=== PATIENT | female | born 1975 | race Caucasian/White ===

== ENCOUNTER → 2018-06-13 15:53 | Outpatient (REF) | payer BC, SELFPAY ==
[2018-06-13 22:07] LABS: TSH (W/Ref FT4) 2.49 uIU/mL (0.358-3.74)
== END ==
LOC: NCHCN 15:53
PROVIDERS: PCP Internal Medicine; Visit Provider Nurse Practitioner Family
DX: G47.62 Sleep related leg cramps; E03.9 Hypothyroidism, unspecified
CPT/HCPCS: 84443

== ENCOUNTER 2019-09-15 11:35 | Outpatient (REF) | payer OTHER, SELFPAY ==
[2019-09-15 22:54] LABS: ALT 37 U/L (14-59); AST 13 U/L (15-37); Albumin 4.2 g/dL (3.4-5.0); Alkaline Phosphatase 49 U/L (46-116); Anion Gap 8.5 mmol/L (3-11); BUN 18 mg/dL (7-18); Bilirubin, Total 0.5 mg/dL (0.2-1.0); CO2 27.5 mmol/L (21.0-32.0); CREATININE 0.73 mg/dL (0.55-1.02); Calculated LDL 139 mg/dL; Chloride 104 mmol/L (98-107); Cholesterol 220 mg/dL (<200); Glucose 86 mg/dL (74-106); HDL Cholesterol 68 mg/dL (40-60); Magnesium 1.9 mg/dL (1.8-2.4); Sodium 140 mmol/L (136-145); TSH 2.29 uIU/mL (0.36-3.74); Triglyceride 65 mg/dL (<150); Vitamin B12 1175 pg/mL (193-986)
[2019-09-15 23:12] LABS: FREE T4 0.69 ng/dL (0.76-1.46)
[2019-09-16 16:49] LABS: T3,Free 3.6 pg/mL (2.8-5.3)
== END 2019-09-15 11:55 ==
LOC: NCHCN 11:35
PROVIDERS: PCP Internal Medicine; Visit Provider Nurse Practitioner Family
DX: Z00.00 Encounter for general adult medical examination without abnormal findings (principal); R41.3 Other amnesia; I73.00 Raynaud's syndrome without gangrene; G47.62 Sleep related leg cramps; R61 Generalized hyperhidrosis; R19.7 Diarrhea, unspecified; M26.603 Bilateral temporomandibular joint disorder, unspecified; R10.30 Lower abdominal pain, unspecified
CPT/HCPCS: 80053; 80061; 82607; 83735; 84439; 84443; 84481

== ENCOUNTER 2019-10-01 10:04 | Outpatient (REF) | payer OTHER, SELFPAY ==
--- NOTE | 2019-10-01 09:30 | PAPFT_PTH ---
PATIENT: Cherise Javier LOC: [facility]#:[id number] AGE/SX: 43/F ROOM: RE10/01/[address]: Teagan Kelley : 1975 BED: DIS: 10/01/2019 SPEC #: [id number] RECD: 10/01/19 13:14 STATUS: JOYCE REBhupendra #: [id number] JONO: 10/01/19 09:[address]: Teagan Kelley DEPT: [facility] Cytology RECD BY: Roxy Lees Tissues: 1 - CX/ENDOCX FOR PAP SMEARS Procedures: PAP THIN PREP/[facility]VM Screening HPV DNA PROBE Comments: [id number] (CHLAMYDIA/GC)
[2019-10-01 21:54] LABS: Abs Immature Grans 0.01 k/cumm (0.0-0.09); Absolute Basophil Count 0.05 k/cumm (0.0-0.2); Absolute Eosinophil Count 0.15 k/cumm (0.0-0.7); Absolute Monocyte Count 0.35 k/cumm (0.11-0.7); Absolute Neutrophil Count 5.07 k/cumm (1.2-6.7); Basophils % 0.6; Eosinophils % 1.8; HCT 43.4 % (36.0-46.0); HGB 14.1 g/dL (12.0-15.5); Immature Grans % 0.1; Lymphocytes % 30.8; Mean Corp. HGB Concentration 32.5 g/dL (32.0-36.0); Mean Corpuscular Hemoglobin 32.3 pg (27.0-33.0); Mean Corpuscular Volume 99.3 fL (80-95); Mean Platelet Volume 12.2 fL (8.0-11.0); Monocytes % 4.3; Neutrophils % 62.4; Platelet Count 216 x1000/uL (130-400); RBC 4.37 m/cumm (4.00-5.20); RBC Distribution Width 12.6 % (11.7-14.6); White Blood Cell Count 8.13 k/cumm (4.4-10.8)
[2019-10-02 14:18] LABS: Chlamydia Result Negative (Negative); GC Result Negative (Negative)
[2019-10-03 11:45] LABS: Beta-HCG, Quant, Tumor Marker <0.6 IU/L
[2019-10-05 10:54] LABS: FSH 9.8 mIU/mL (See Note); Prolactin 9.4 ng/mL (See Table)
[2019-10-05 12:02] LABS: Syphilis Serology (RPR) Negative (Negative)
[2019-10-05 12:53] LABS: HIV-1/2 Ag & Ab Screen Negative (Negative)
[2019-10-05 15:23] LABS: Estradiol 158 pg/mL (See Note)
== END 2019-10-01 10:24 ==
LOC: NCHCN 10:04
PROVIDERS: PCP Nurse Practitioner Family; Visit Provider Nurse Practitioner Family
DX: N93.9 Abnormal uterine and vaginal bleeding, unspecified (principal); R10.30 Lower abdominal pain, unspecified; Z12.4 Encounter for screening for malignant neoplasm of cervix; Z01.419 Encounter for gynecological examination (general) (routine) without abnormal findings; Z11.4 Encounter for screening for human immunodeficiency virus [HIV]; Z11.3 Encounter for screening for infections with a predominantly sexual mode of transmission
CPT/HCPCS: 87389; 87491; 87591; 88142; 82670; 83001; 83002; 84146; 84702; 85025; 86592; 87480; 87510; 87624; 87660

== ENCOUNTER 2019-10-05 00:54 | Outpatient (CLI) | payer OTHER, SELFPAY ==
--- NOTE | 2019-10-05 13:07 | DI.US_ITS ---
EXAM: US PELVIS AND TRANSVAGINAL CLINICAL HISTORY: ABNORMAL VAGINAL BLEEDING N93.9, SUPRAPUBIC PAIN R10.30 TECHNIQUE: Ultrasound performed using standard protocol. COMPARISON: No exams were available for comparison FINDINGS: The uterus measures 7.8 centimeters long by 3.1 centimeters AP x 4.9 centimeters transverse. Myometr ium is unremarkable. The endometrial stripe is within normal limits at 8.4 millimeters. There is a small amount of fluid seen within the cervical portion of the canal. The right ovary measures 3.5 x 2.8 x 3.2 centimeters. There are follicular cysts present. There is normal blood flow to the right ovary. No evidence of torsion. The left ovary measures 3 x 1.7 x 1.7 centimeters. There are follicular cysts present. There is an involutional cyst present on the left ovary. There is normal blood flow to the left ovary. No evide nce of torsion. No free pelvic fluid or hydronephrosis. IMPRESSION: 1. Small amount of fluid seen within the endometrial canal. 2. Otherwise unremarkable pelvic ultrasound.
== END 2019-10-05 01:14 ==
PROVIDERS: PCP Nurse Practitioner Family; Visit Provider Nurse Practitioner Family
DX: N93.9 Abnormal uterine and vaginal bleeding, unspecified (principal); R10.30 Lower abdominal pain, unspecified; N83.292 Other ovarian cyst, left side
CPT/HCPCS: 76830; 76856

== ENCOUNTER 2020-07-13 12:22 | Outpatient (REF) | payer OTHER, SELFPAY ==
[2020-07-13 22:14] LABS: Abs Immature Grans 0.02 10^3/uL (0.0-0.06); Absolute Basophil Count 0.05 10^3/uL (0.0-0.2); Absolute Eosinophil Count 0.13 10^3/uL (0.0-0.7); Absolute Lymphocyte Count 2.89 10^3/uL (1.2-3.4); Absolute Monocyte Count 0.46 10^3/uL (0.1-0.8); Absolute Neutrophil Count 5.87 10^3/uL (1.2-6.7); Basophils % 0.5; Eosinophils % 1.4; HCT 40.5 % (36.0-46.0); HGB 13.3 g/dL (11.2-15.7); Immature Grans % 0.2; Lymphocytes % 30.7; MCH 33.3 pg (27.0-33.0); MCHC 32.8 % (32.0-36.0); MCV 101.3 fL (80-95); MPV 12.3 fL (8.0-11.0); Monocytes % 4.9; Neutrophils % 62.3; Nucleated RBC 0 %; Platelet Count 200 10^3/uL (130-400); RDW 12.3 % (11.7-14.6); RDW-SD 46.6 fL; WBC 9.42 10^3/uL (4.4-10.8)
== END 2020-07-13 12:42 ==
LOC: NCHCN 12:22
PROVIDERS: PCP Nurse Practitioner Family; Visit Provider Internal Medicine
DX: Z87.440 Personal history of urinary (tract) infections (principal)
CPT/HCPCS: 85025

== ENCOUNTER 2020-10-24 19:18 | Outpatient (REF) | payer OTHER, SELFPAY ==
[2020-10-24 22:03] LABS: Anion Gap 4.6 mmol/L (3-11); BUN 15 mg/dL (7-18); CO2 29.4 mmol/L (21.0-32.0); CREATININE 0.85 mg/dL (0.55-1.02); Calcium 9.3 mg/dL (8.5-10.1); Chloride 104 mmol/L (98-107); FREE T4 0.94 ng/dL (0.76-1.46); Glucose 90 mg/dL (74-106); Magnesium 2.1 mg/dL (1.8-2.4); Potassium 4.4 mmol/L (3.5-5.1); Sodium 138 mmol/L (136-145); TSH 1.18 uIU/mL (0.36-3.74)
[2020-10-24 22:12] LABS: Iron 72 ug/dL (50-170); Total Iron Binding Capacity 273 ug/dL (250-450); Transferrin Sat 26 % (15-50)
[2020-10-24 22:26] LABS: ESR 4 mm/hr (0-20)
[2020-10-25 08:52] LABS: Abs Immature Grans 0.04 10^3/uL (0.0-0.06); Absolute Eosinophil Count 0.09 10^3/uL (0.0-0.7); Absolute Lymphocyte Count 3.25 10^3/uL (1.2-3.4); Absolute Monocyte Count 0.59 10^3/uL (0.1-0.8); Absolute Neutrophil Count 8.54 10^3/uL (1.2-6.7); Basophils % 0.6; Eosinophils % 0.7; HCT 42.1 % (36.0-46.0); HGB 14.5 g/dL (11.2-15.7); Immature Grans % 0.3; Lymphocytes % 25.8; MCH 32.7 pg (27.0-33.0); MCHC 34.4 % (32.0-36.0); MPV 12.8 fL (8.0-11.0); Monocytes % 4.7; Neutrophils % 67.9; Nucleated RBC 0 %; Platelet Count 225 10^3/uL (130-400); RBC 4.43 10^6/uL (3.93-5.22); RDW 12.3 % (11.7-14.6); RDW-SD 42.9 fL; WBC 12.58 10^3/uL (4.4-10.8)
[2020-10-25 08:56] LABS: Absolute Basophil Count 0.08 10^3/uL (0.0-0.2)
[2020-10-25 16:46] LABS: T3,Free 4.9 pg/mL (2.8-5.3)
== END 2020-10-24 19:38 ==
LOC: NCHCN 19:18
PROVIDERS: PCP Nurse Practitioner Family; Visit Provider Nurse Practitioner Family
DX: R63.4 Abnormal weight loss (principal); N89.8 Other specified noninflammatory disorders of vagina; Z30.9 Encounter for contraceptive management, unspecified; K64.9 Unspecified hemorrhoids; G47.62 Sleep related leg cramps; E03.9 Hypothyroidism, unspecified; Z83.3 Family history of diabetes mellitus
CPT/HCPCS: 80048; 85652; 83036; 83540; 83550; 83735; 84439; 84443; 84481; 85025

== ENCOUNTER 2020-11-10 12:59 | Outpatient (REF) | payer OTHER, SELFPAY ==
[2020-11-10 13:02] LABS: Abs Immature Grans 0.03 10^3/uL (0.0-0.06); Absolute Basophil Count 0.07 10^3/uL (0.0-0.2); Absolute Eosinophil Count 0.11 10^3/uL (0.0-0.7); Absolute Lymphocyte Count 2.19 10^3/uL (1.2-3.4); Absolute Monocyte Count 0.46 10^3/uL (0.1-0.8); Absolute Neutrophil Count 7.24 10^3/uL (1.2-6.7); Basophils % 0.7; Eosinophils % 1.1; HCT 40.9 % (36.0-46.0); HGB 13.7 g/dL (11.2-15.7); Immature Grans % 0.3; Lymphocytes % 21.7; MCH 32.9 pg (27.0-33.0); MCHC 33.5 % (32.0-36.0); MCV 98.3 fL (80-95); MPV 12.3 fL (8.0-11.0); Monocytes % 4.6; Neutrophils % 71.6; Nucleated RBC 0 %; Platelet Count 205 10^3/uL (130-400); RBC 4.16 10^6/uL (3.93-5.22); RDW 12.5 % (11.7-14.6)
== END 2020-11-10 13:19 ==
LOC: NCHCN 12:59
PROVIDERS: PCP Nurse Practitioner Family; Visit Provider Nurse Practitioner Family
DX: D72.829 Elevated white blood cell count, unspecified (principal)
CPT/HCPCS: 85025

== ENCOUNTER 2021-04-06 16:45 | Outpatient (REF) | payer OTHER, SELFPAY ==
[2021-04-06 13:51] LABS: Abs Immature Grans 0.05 10^3/uL (0.0-0.06); Absolute Basophil Count 0.05 10^3/uL (0.0-0.2); Absolute Eosinophil Count 0.15 10^3/uL (0.0-0.7); Absolute Lymphocyte Count 2.69 10^3/uL (1.2-3.4); Absolute Monocyte Count 0.48 10^3/uL (0.1-0.8); Absolute Neutrophil Count 6.69 10^3/uL (1.2-6.7); Basophils % 0.5; Eosinophils % 1.5; HCT 41.9 % (36.0-46.0); HGB 13.9 g/dL (11.2-15.7); Immature Grans % 0.5; Lymphocytes % 26.6; MCH 33.2 pg (27.0-33.0); MCHC 33.2 % (32.0-36.0); MPV 12.7 fL (8.0-11.0); Monocytes % 4.7; Neutrophils % 66.2; Nucleated RBC 0 %; Platelet Count 199 10^3/uL (130-400); RBC 4.19 10^6/uL (3.93-5.22); RDW-SD 44.2 fL; WBC 10.11 10^3/uL (4.4-10.8)
[2021-04-06 13:52] LABS: ESR 1 mm/hr (0-20)
[2021-04-06 14:04] LABS: C-Reactive Protein 0.07 mg/dL (0.0-0.3)
[2021-04-07 14:08] LABS: Lyme Ab w Rflx to Lyme Confirm Negative (Negative)
[2021-04-07 15:04] LABS: ANA Interpretation Negative (Negative)
[2021-04-10 21:52] LABS: Anaplasma phagocytophilum Negative (Negative); B. miyamotoi PCR Negative (Negative); Babesia divergens/MO-1 Negative (Negative); Babesia duncani Negative (Negative); Babesia microti Negative (Negative); Ehrlichia chaffeensis Negative (Negative); Ehrlichia ewingii/canis Negative (Negative); Ehrlichia muris eauclairensis Negative (Negative)
== END 2021-04-06 16:46 | disposition home or self-care (01) ==
LOC: NCHCN 16:45
PROVIDERS: PCP Nurse Practitioner Family; Visit Provider Nurse Practitioner Family
DX: R53.83 Other fatigue (principal); D72.829 Elevated white blood cell count, unspecified; R20.2 Paresthesia of skin; M25.59 Pain in other specified joint; R10.9 Unspecified abdominal pain; I73.00 Raynaud's syndrome without gangrene; G43.909 Migraine, unspecified, not intractable, without status migrainosus; M25.551 Pain in right hip; M25.552 Pain in left hip
CPT/HCPCS: 85652; 87798; 85025; 86038; 86140; 86618

== ENCOUNTER 2021-04-11 01:36 | Outpatient (CLI) | payer OTHER, SELFPAY ==
--- NOTE | 2021-04-11 08:08 | DI.RAD_ITS ---
Exam(s) XR HIP PELVIS ADULT BL EXAM: XR HIP PELVIS ADULT BL CLINICAL HISTORY: LEANN HIP PAIN, M25.551, ARTHRALGIA, M25.50 TECHNIQUE: COMPARISON: No exams were available for comparison FINDINGS: Three views were obtained. Cartilaginous joint spaces of hips are well maintained. No bony or soft tissue abnormality seen. IMPRESSION: RADIATION DOSE DELIVERED: Total DLP
== END 2021-04-11 01:56 ==
PROVIDERS: PCP Nurse Practitioner Family; Visit Provider Nurse Practitioner Family
DX: M25.551 Pain in right hip (principal); M25.552 Pain in left hip
CPT/HCPCS: 73521

== ENCOUNTER 2021-10-12 17:17 | Outpatient (REF) | payer MEDICAID, SELFPAY | END 2021-10-12 17:18 | disposition home or self-care (01) | LOC: LBN 17:17 | PROVIDERS: PCP Nurse Practitioner Family; Visit Provider Physician Assistant Medical | DX: R10.9 Unspecified abdominal pain (principal) | CPT/HCPCS: 87077; 87086; 87186 ==

== ENCOUNTER 2021-11-08 09:12 | Outpatient (CLI) | payer MEDICAID, SELFPAY ==
--- NOTE | 2021-11-08 09:00 | DI.RAD_ITS ---
Exam(s) XR WRIST RT COMPLETE EXAM: XR WRIST RT COMPLETE CLINICAL HISTORY: right wrist pain. TECHNIQUE: 2D digital imaging was performed. COMPARISON: No exams were available for comparison FINDINGS: No evidence of acute fracture or carpal dislocation. No significant ulnar variance. Bone density no rmal. No osseous lesions nor erosions IMPRESSION: No significant radiographic findings. DATA REPOSITORY: RADIATION DOSE DELIVERED:
== END 2021-11-08 09:13 | disposition home or self-care (01) ==
LOC: DIORS 09:12
PROVIDERS: PCP Nurse Practitioner Family; Referring Provider Nurse Practitioner Family; Visit Provider Physician Assistant
DX: M25.531 Pain in right wrist (principal)
CPT/HCPCS: 73110

== ENCOUNTER 2022-12-04 10:38 | Outpatient (REF) | payer MEDICAID, SELFPAY ==
[2022-12-04 14:34] LABS: Abs Immature Grans 0.03 10^3/uL (0.0-0.06); Absolute Basophil Count 0.06 10^3/uL (0.0-0.2); Absolute Eosinophil Count 0.16 10^3/uL (0.0-0.7); Absolute Lymphocyte Count 2.26 10^3/uL (1.2-3.4); Absolute Monocyte Count 0.47 10^3/uL (0.1-0.8); Absolute Neutrophil Count 5.63 10^3/uL (1.2-6.7); Basophils % 0.7; Eosinophils % 1.9; HCT 42.6 % (36.0-46.0); Immature Grans % 0.3; Lymphocytes % 26.2; MCH 32.9 pg (27.0-33.0); MCHC 32.9 % (32.0-36.0); MCV 100 fL (80-95); MPV 12.4 fL (8.0-11.0); Monocytes % 5.5; Neutrophils % 65.4; Platelet Count 179 10^3/uL (130-400); RBC 4.26 10^6/uL (3.93-5.22); RDW 12.2 % (11.7-14.6); RDW-SD 45.1 fL; WBC 8.61 10^3/uL (4.4-10.8)
[2022-12-04 14:36] LABS: ESR < 1 mm/hr (0-20)
[2022-12-04 14:46] LABS: ALT 20 U/L (14-59); AST 13 U/L (15-37); Albumin 3.9 g/dL (3.4-5.0); Alkaline Phosphatase 53 U/L (46-116); Anion Gap 6.8 mmol/L (3-11); BUN 14 mg/dL (7-18); Bilirubin, Total 0.6 mg/dL (0.2-1.0); CO2 29.2 mmol/L (21.0-32.0); CREATININE 0.6 mg/dL (0.55-1.02); Calcium 8.8 mg/dL (8.5-10.1); Chloride 106 mmol/L (98-107); Creatine Kinase 69 U/L (26-192); Estimated GFR 112.73 (mL/min/1.73m2); Glucose 57 mg/dL (74-106); Potassium 4.2 mmol/L (3.5-5.1); Sodium 142 mmol/L (136-145); Total Protein 6.5 g/dL (6.4-8.2)
[2022-12-04 14:48] LABS: C-Reactive Protein < 0.05 mg/dL (0.0-0.3)
[2022-12-04 22:05] LABS: Rheumatoid Factor <8.6 IU/mL (<12.0)
[2022-12-05 12:38] LABS: ANA Interpretation Negative (Negative)
[2022-12-06 13:23] LABS: Lyme Ab w Rflx to Lyme Confirm Negative (Negative)
[2022-12-08 15:26] LABS: Anaplasma phagocytophilum Negative (Negative); B. miyamotoi PCR Negative (Negative); Babesia divergens/MO-1 Negative (Negative); Babesia duncani Negative (Negative); Babesia microti Negative (Negative); Ehrlichia chaffeensis Negative (Negative); Ehrlichia ewingii/canis Negative (Negative); Ehrlichia muris eauclairensis Negative (Negative)
== END 2022-12-04 10:39 | disposition home or self-care (01) ==
LOC: NCHCN 10:38
PROVIDERS: PCP Nurse Practitioner Family; Visit Provider Internal Medicine
DX: M79.10 Myalgia, unspecified site (principal); R68.89 Other general symptoms and signs
CPT/HCPCS: 80053; 82550; 85652; 87798; 85025; 86038; 86140; 86431; 86618

== ENCOUNTER → 2023-07-01 02:22 | Outpatient (CLI) | payer MEDICAID, SELFPAY ==
--- NOTE | 2023-07-01 06:45 | DI.US_ITS ---
Exam(s) US PELVIS TRANSVAGINAL EXAM: US PELVIS TRANSVAGINAL CLINICAL HISTORY: abd pain, hx ovarian cyst,N85.8 TECHNIQUE: Transabdominal and transvaginal imaging was performed using standard protocol. COMPARISON: US US PELVIS TRANSVAGINAL from 10/05/2019 FINDINGS: UTERUS: Anteverted. 7.4 x 3.4 x 4.7 cm Endometrium: 3 mm Myometrium: Unremarkable. Cervix: Nabothian cysts. Trace fluid. OVARIES: Right: Cyst or mass: 2.6 centimeter follicle. Left: Not visualized. DOPPLER: Color: Symmetric and uniform flow to both ovaries. No hyperemia. CUL-DE-SAC: Free fluid: None. IMPRESSION: 1. Normal-appearing uterus with endometrial stripe within normal limits. 2. Unremarkable bilateral ovaries. DATA REPOSITORY:
--- NOTE | 2023-07-01 06:45 | DI.RAD_ITS ---
Exam(s) XR HIP PELVIS ADULT BL EXAM: XR HIP PELVIS ADULT BL CLINICAL HISTORY: hip pain, BOTH HIPS, TROCHANTERIC BURSITIS, M70.62,M70.61. TECHNIQUE: 2D digital imaging was performed of the pelvis and bilateral hips. Three images were obt ained. AP pelvis and lateral views of both hips were obtained. COMPARISON: No exams were available for comparison FINDINGS: BONES: No acute fracture is present. No bony destructive lesion is seen. JOINTS: No dislocation present. SOFT TISSUE: Normal. IMPRESSION: Unrmarkable radiographs of bilat hips. Unremarkable radiographs of the pelvis DATA REPOSITORY: RADIATION DOSE DELIVERED:
== END ==
PROVIDERS: PCP Nurse Practitioner Family; Visit Provider Nurse Practitioner Family
DX: N85.8 Other specified noninflammatory disorders of uterus (principal); M70.61 Trochanteric bursitis, right hip; M70.62 Trochanteric bursitis, left hip
CPT/HCPCS: 73521; 76830; 76856

== ENCOUNTER 2024-06-23 01:07 | Outpatient (CLI) | payer MEDICAID, SELFPAY ==
--- NOTE | 2024-06-23 08:15 | DI.RAD_ITS ---
Exam(s) XR CHEST 2V PA LATERAL EXAM: XR CHEST 2V PA LATERAL CLINICAL HISTORY: DYSPNEA,R06.00 TECHNIQUE: 2D digital imaging was performed. Two views. COMPARISON: CR CHEST 2 VIEWS PA,LAT from 01/24/2011 FINDINGS: HEART: Normal size. Aorta: Not dilated. PULMONARY VASCULATURE: Normal. MEDIASTINUM: Unremarkable. LUNGS: Clear. Hyperinflation. PLEURAL SPACE: No pleural effusion or pneumothorax. BONE:Unremarkable for age. SOFT TISSUES: Unremarkable. IMPRESSION: No acute abnormality. DATA REPOSITORY: RADIATION DOSE DELIVERED:
== END 2024-06-23 01:27 ==
LOC: DI 01:07
PROVIDERS: PCP Nurse Practitioner Family; Visit Provider Naturopath
DX: R06.9 Unspecified abnormalities of breathing (principal)
CPT/HCPCS: 71046

== ENCOUNTER 2024-08-04 01:55 | Outpatient (CLI) | payer MEDICAID, SELFPAY ==
[2024-08-04 09:01] LABS: Abs Immature Grans 0.03 10^3/uL (0.0-0.06); Absolute Basophil Count 0.05 10^3/uL (0.0-0.2); Absolute Eosinophil Count 0.07 10^3/uL (0.0-0.7); Absolute Lymphocyte Count 1.87 10^3/uL (1.2-3.4); Absolute Monocyte Count 0.41 10^3/uL (0.1-0.8); Absolute Neutrophil Count 7.72 10^3/uL (1.2-6.7); Basophils % 0.5 %; Eosinophils % 0.7 %; HCT 43.6 % (36.0-46.0); HGB 14.5 g/dL (11.2-15.7); Immature Grans % 0.3 %; Lymphocytes % 18.4 %; MCH 33.3 pg (27.0-33.0); MCHC 33.3 % (32.0-36.0); MCV 100 fL (80-95); MPV 11.7 fL (8.0-11.0); Neutrophils % 76.1 %; Platelet Count 184 10^3/uL (130-400); RBC 4.36 10^6/uL (3.93-5.22); RDW 11.9 % (11.7-14.6); RDW-SD 43.9 fL; WBC 10.15 10^3/uL (4.4-10.8)
[2024-08-04 09:29] LABS: Ferritin 72 ng/mL (8-252); TSH 0.82 uIU/mL (0.36-3.74)
[2024-08-04 09:45] LABS: FREE T4 0.77 ng/dL (0.76-1.46)
[2024-08-04 17:41] LABS: T3,Free 3.8 pg/mL (2.8-5.3)
[2024-08-04 18:53] LABS: FSH 4.6 mIU/mL (See Note)
[2024-08-05 19:51] LABS: Iodine, S 53 ng/mL (40-92)
[2024-08-06 01:17] LABS: EBV DNA Detect/Quant, P Undetected IU/mL (Undetected)
[2024-08-06 16:02] LABS: HLA-B27 Result Negative
== END 2024-08-04 01:56 | disposition home or self-care (01) ==
LOC: LBO 01:55
PROVIDERS: PCP Nurse Practitioner Family; Visit Provider Naturopath
DX: E03.9 Hypothyroidism, unspecified (principal); K58.0 Irritable bowel syndrome with diarrhea; F43.12 Post-traumatic stress disorder, chronic; M25.512 Pain in left shoulder; M54.59 Other low back pain; M26.623 Arthralgia of bilateral temporomandibular joint; M25.522 Pain in left elbow; R11.0 Nausea; G43.809 Other migraine, not intractable, without status migrainosus; M25.552 Pain in left hip; R61 Generalized hyperhidrosis; N39.3 Stress incontinence (female) (male); I73.00 Raynaud's syndrome without gangrene; R42 Dizziness and giddiness
CPT/HCPCS: 36415; 86812; 87799; 82190; 82728; 83001; 84439; 84443; 84481; 85025

== ENCOUNTER 2024-09-07 15:48 | Outpatient (REF) | payer MEDICAID, SELFPAY ==
--- NOTE | 2024-09-07 12:00 | PAPFT_PTH ---
PATIENT: Cherise Javier LOC: [facility] U#:[id number] AGE/SX: 48/F ROOM: RE09/07/[address]: Sanaz Felix NP : 1975 BED: DIS: 09/07/2024 SPEC #: [id number] RECD: 09/08/24 12:43 STATUS: JOYCE REBhupendra #: [id number] JONO: 09/07/24 12:[address]: Sanaz Felix DEPT: [facility] Cytology RECD BY: Roxy Lees Tissues: 1 - CX/ENDOCX FOR PAP SMEARS Procedures: PAP THIN PREP/UVM Screening HPV DNA PROBE Comments: [id number] (HPV 16 & 18/45)
== END 2024-09-07 15:49 | disposition home or self-care (01) ==
LOC: LBN 15:48
PROVIDERS: PCP Nurse Practitioner Family; Visit Provider Nurse Practitioner Family
DX: Z00.00 Encounter for general adult medical examination without abnormal findings (principal); E03.9 Hypothyroidism, unspecified; Z78.9 Other specified health status
CPT/HCPCS: 88142; 87624

== ENCOUNTER 2024-12-29 00:30 | Outpatient (CLI) | payer MEDICAID, SELFPAY ==
--- NOTE | 2024-12-29 07:30 | DI.MAMMO_ITS ---
Exam(s) MAMMO SCREENING EXAM: MAMMO SCREENING CLINICAL HISTORY: screening,z12.39 TECHNIQUE: Mammograms were interpreted according to the usual protocol including computer analysis w [employer] CAD system, tomosynthesis and C-view imaging. COMPARISON: None FINDINGS: The breasts are composed of heterogeneously dense fibroglandular densities, Breast Density category C . No suspicious masses or suspicious microcalcifications are seen. No skin thickening or abnormal axillary lymph nodes are seen. IMPRESSION: BI-RADS Category 1, Negative mammogram. Yearly screening mammography is recommended. Breast Density Category C, heterogeneously Dense. The mammogram demonstrates the patient's breast tissue is dense. Dense breast tissue is very common a nd is not abnormal but dense breast tissue can make it harder to find cancer on a mammogram. Also, de nse breast tissue may increase breast cancer risk. This information about the result of the mammogram report was provided to the patient to raise their awareness. Use this report when you speak with the patient about their risks for breast cancer, which includes their family history. At that time, you may recommend additional screening tests (Ultrasound or MRI) as they might be useful based on their r isk. A negative radiographic report should not delay biopsy if a dominant or clinically suspicious mass is present. Up to ten percent of cancers are not identified on mammography. A negative report may reinforce clinical impression. Adenosis and dense breasts may obscure an underlying neoplasm. False positive reports average 6 to 10%.
== END 2024-12-29 00:50 ==
LOC: DI 00:30
PROVIDERS: PCP Nurse Practitioner Family; Visit Provider Nurse Practitioner Family
DX: Z12.31 Encounter for screening mammogram for malignant neoplasm of breast (principal); R92.333 Mammographic heterogeneous density, bilateral breasts
CPT/HCPCS: 77063; 77067

== ENCOUNTER 2025-08-11 18:32 | Outpatient (REF) | payer OTHER, SELFPAY ==
[2025-08-13 13:28] LABS: Chlamydia Result Negative (Negative); GC Result Negative (Negative)
== END 2025-08-11 18:33 | disposition home or self-care (01) ==
LOC: LBN 18:32
PROVIDERS: PCP Nurse Practitioner Family; Visit Provider Obstetrics & Gynecology
DX: R10.20 Pelvic and perineal pain unspecified side (principal)
CPT/HCPCS: 87491; 87591